=== PATIENT | male | born 1995 | race Caucasian/White ===

== ENCOUNTER 2019-07-18 14:55 | Emergency (ER) | payer OTHER, SELFPAY ==
[2019-07-18 14:55] VITALS: BP 134/84; PULSE 70; RESP 16; TEMP 36.9; O2SAT 98; BMI 19.8
--- NOTE | 2019-07-18 15:32 | ED.VIS.GEN ---
History of Present Illness Informant: Patient, Family Onset: Days - 4 days Context: Gradual Onset Timing: Continuous Quality: loss of appettite Location: stomach Current Severity: Severe Maximum Severity: Severe Worsened by: food Relieved by: nothing Associated Symptoms: depression Narrative: 24-year-old male with his mother who denies any significant past medical history presents for depression and having difficulty eating. Patient recently broke up with his girlfriend after a long-term relationship several days ago. He feels like this break-up came out of nowhere. He states that they go to different colleges. He goes to [employer]. She goes to [employer]. He was supposed to go visit her a few days ago but she told him that she did not want him to come however he has other friends at that school he went to the campus try to get a hold of her and she said she did not want to see him and that she wanted to break up. He states he did not actually see her on the campus and left. He later got a call that evening from [place] police who told him to avoid contacting this person, his ex-girlfriend,, he states that he did not see her again and he has not contacted her since that however this morning she did send him a message. But because of this patient has been depressed, he has not been eating or sleeping he has no appetite. Food does not taste good. He is not suicidal or homicidal. He has no paranoia delusions or hallucinations. No history of depression. No drug or alcohol use. He denies any other review of systems. Prior similar symptoms: No Recent Illness/Hospitalization: No <Jimy Mendez - Last Filed: 07/18/19 16:28> <Dariel Dos Santos - Last Filed: 07/18/19 16:33> Chief Complaint: Depression Past Medical History Prior records reviewed: Yes Past Medical History: None Surgical History: no surgical history Lives: Roommate Smoking Status: Never smoker Alcohol: Occasional <Jimy Mendez - Last Filed: 07/18/19 16:28> <Dariel Dos Santos - Last Filed: 07/18/19 16:33> - Allergies and Home Meds Allergies/Adverse Reactions: Allergies No Known Allergies Allergy (Verified 07/18/19 14:58) Primary Care Physician: Eduardo Devi MD [Primary Care Provider] - Review of Systems All systems negative except as indicated Psych: Reports: Depression. Denies: Anxiety, Suicidal thoughts, Suicidal ideations <Jimy Mendez - Last Filed: 07/18/19 16:28> General: Reports: Weight loss - Patient reports 10 pound weight loss over the past 2 to 3 weeks. Denies: Chills, Fever, Malaise Cardiovascular: Denies: Chest pain, Palpitations, Heart racing Respiratory: Denies: Dyspnea Gastrointestinal: Denies: Nausea, Vomiting Musculoskeletal: Denies: Myalgias, Arthralgias, Neck pain, Back pain, Swelling, Extremity Pain Skin: Denies: Rash, Wounds Allergy: Denies: Uticaria, Swelling of the mouth <LevonDariel - Last Filed: 07/18/19 16:33> Physical Exam Vital Signs/Narrative: Vital Signs Temp Pulse Resp BP Pulse Ox 07/18/19 14:55 98.4 F 70 16 134/84 H 98 Inital Vital Signs reviewed: Yes General: Well nourished, Well developed, No Acute Distress Head: Normocephalic, Atraumatic Eyes: Perrl, EOMI ENT: Moist mucous membranes Neck: Supple, Nontender, No lymphadenopathy, No JVD Cardiovascular: Regular rate, Regular rhythm, No murmurs Respiratory: No distress, CTA bilaterally, Chest nontender Abdomen: Soft, Nontender, Nondistended, Normal bowel sounds, No masses Back: Nontender, Normal Inspection Extremities: Nontender, No edema Skin: Normal color, No rash Neurological: Alert, Oriented x3 Psychological: Depressed, - - There is no suicidal or homicidal ideation. Normal speech pattern. Logical sequential goal-directed thoughts. <Jimy Mendez - Last Filed: 07/18/19 16:28> Vital Signs/Narrative: Vital Signs Temp Pulse Resp BP Pulse Ox 07/18/19 14:55 98.4 F 70 16 134/84 H 98 <LevonDariel - Last Filed: 07/18/19 16:33> Diagnostic/Tx/Re-eval - Medical Decision Making 24-year-old male presents with acute situational depression. He is not globally depressed. He is never had this issue in the past. He is not suicidal or homicidal. He at this time is safe for discharge. His basic metabolic panel is unremarkable. Unfortunately we did not have counseling services here available because it is Friday. We will start on the low-dose Zoloft. He will follow-up with the counseling center at his [facility] [employer] [facility] [employer]. Mom and patient agreed with plan. All questions answered. He is discharged <Jimy Mendez - Last Filed: 07/18/19 16:28> - Medical Decision Making Patient brought to the emergency room because of depression, weight loss. He is a student at [employer]. This is not his first major relationship. He is not certain why this 1 is affecting him the way it has. He does report depression. Does report decreased appetite difficulty sleeping and being sad. He has no suicidal thoughts. There is no history of psychiatric disorder. Patient has a depressed affect. His vital signs are unremarkable. His exam is unremarkable. Consult was placed with case management to facilitate arrangements for outpatient follow-up. I was informed that is no one available today to speak with him. Recommend that he contact the wellness center at [place] for referral to therapist. Prescription for Zoloft was dispensed. <Dariel Dos Santos - Last Filed: 07/18/19 16:33> ED Disposition <AndreaJimy - Last Filed: 07/18/19 16:28> <Dariel Dos Santos - Last Filed: 07/18/19 16:33> - Plan for ED Patient: Disposition: Home or Assisted Living Diagnosis: Acute situational depression Instructions: Depression Prescriptions: Sertraline HCl [Zoloft] 25 mg PO QHS #30 tab Prescription Printed Referrals: Eduardo Devi MD [Primary Care Provider] - Additional Instructions: Please contact your health center at [facility] and ask for referral to counseling services
[2019-07-18 16:21] LABS: Anion Gap 3 (5-15); BUN 11 mg/dL (7-18); BUN/Creat Ratio 10.4 RATIO (10-20); Calcium,Total 8.9 mg/dL (8.5-10.1); Chloride 105 mmol/L (98-107); Creatinine, Serum 1.06 mg/dL (0.70-1.30); EST Glomerular Filtration Rate 93 mL/min (>60); Est Glom Filt Rate - Afr Amer 112 mL/min (>60); Estimated Creatinine Clearance 108.38 ml/min; Glucose 105 mg/dL (74-106); Potassium 3.9 mmol/L (3.5-5.1); Sodium Level 138 mmol/L (136-145)
== END 2019-07-18 16:43 | disposition home or self-care (01) ==
PROVIDERS: Emergency Provider Physician Assistant Medical; Family Provider Family Medicine; PCP Family Medicine
DX: F43.21 Adjustment disorder with depressed mood (principal)
CPT/HCPCS: 36415; 80048; 99284